=== PATIENT | female | born 1955 | race Caucasian/White ===

== ENCOUNTER 2021-04-01 12:23 | Observation (INO) | payer MEDICARE ==
[2021-04-01 13:32] LABS: ALT (SGPT) 19 U/L (8-55); AST (SGOT) 27 U/L (5-34); Albumin 3.6 g/dL (3.4-4.8); Alkaline Phosphatase 57 U/L (40-110); Anion Gap 14 mmol/L (10-20); BUN (Urea Nitrogen) 15 mg/dL (9.8-20.1); Bilirubin, Total 0.5 mg/dL (0.2-1.2); Calc. Creatinine Clearance 0 mL/min (70-130); Calcium 9.3 mg/dL (7.8-10.44); Carbon Dioxide 26 mmol/L (23-31); Chloride 102 mmol/L (98-107); Globulin 2.4 g/dL (2.4-3.5); Glucose 122 mg/dL (80-115); Potassium 3.9 mmol/L (3.5-5.1); Sodium 138 mmol/L (136-145)
[2021-04-01 13:35] LABS: #Monocytes 1.2 10x3/uL (0.0-1.1); #Neutrophils 5.8 10x3/uL (1.5-8.4); %Basophils 0.4 % (0.0-2.0); %Eosinophils 0.4 % (0.0-6.0); %Lymphocytes 21.2 % (18.0-47.0); %Monocytes 13.3 % (0.0-10.0); %Neutrophils 64.3 % (40.0-75.0); Hemoglobin 8.1 g/dL (12.0-15.5); Mean Corpuscular Hemoglobin 32.4 pg (27.0-33.0); Mean Corpuscular Volume 101.2 fl (81.6-98.3); Platelet Count 120 10x3/uL (150-450)
[2021-04-01 13:55] LABS: CKMB 4.3 ng/mL (0-6.6)
[2021-04-01 14:30] LABS: PTT 21.4 sec (22.0-33.0); Prothrombin Time 10.9 sec (9.5-12.1)
[2021-04-01 17:05] LABS: Lactic Acid 2.5 mmol/L (0.5-2.2)
[2021-04-01] MEDS ORDERED: Zolpidem Tartrate 5 MG TAB PO PRN (19:19)
[2021-04-01] MEDS ORDERED: Guaifenesin DM 100-10/5 ML UDCUP PO PRN (19:19)
[2021-04-01] MEDS ORDERED: Calcium Carbonate 500 MG ChewTAB PO PRN (19:19)
[2021-04-01] MEDS ORDERED: Senokot S 8.6-50 MG TAB PO PRN (19:19)
[2021-04-01] MEDS ORDERED: hydrOXYzine 25 MG TAB PO PRN (19:21)
[2021-04-01] MEDS ORDERED: FERROUS GLUCONATE 236 MG PO SCH (21:00)
[2021-04-01 21:22] LABS: Hemoglobin 8.7 g/dL (12.0-15.5); Lactic Acid 1.8 mmol/L (0.5-2.2); Mean Corpuscular HGB CONC 32.5 g/dL (32.0-36.0); Mean Corpuscular Hemoglobin 32.2 pg (27.0-33.0); Mean Corpuscular Volume 99.3 fl (81.6-98.3); Platelet Count 102 10x3/uL (150-450); RBC Distribution Width 14.6 % (11.5-14.5); White Blood Cell (WBC) Count 8.5 10x3/uL (3.5-10.5)
[2021-04-01 21:25] LABS: Anion Gap 14 mmol/L (10-20); BUN (Urea Nitrogen) 21 mg/dL (9.8-20.1); Calc. Creatinine Clearance 0 mL/min (70-130); Calcium 9.4 mg/dL (7.8-10.44); Carbon Dioxide 25 mmol/L (23-31); Chloride 103 mmol/L (98-107); Glucose 79 mg/dL (80-115); Potassium 4.6 mmol/L (3.5-5.1); Sodium 137 mmol/L (136-145)
[2021-04-01 21:53] LABS: Band 4 % (5-11); Lymphocytes 23 % (21-51); Monocytes 22 % (0-10)
[2021-04-01 21:54] LABS: Anisocytosis SLIGHT = 6-15 cells (100X) (0-5/hpf); Macrocytosis SLIGHT = 6-15 cells (100X) (0-5/hpf); Neutrophil 49 % (42-75)
[2021-04-01 21:55] LABS: Platelet Morphology Comment Appears Decreased
[2021-04-01 21:56] LABS: Large Platelets MODERATE; MDiff Complete? YES; Manual Diff?? YES
[2021-04-01] MEDS: Clopidogrel Bisulfate 75 MG TAB PO SCH (23:41)
[2021-04-02] MEDS: Acetaminophen 325 MG TAB PO PRN ×2 (00:06→15:39)
[2021-04-02 04:51] VITALS: BMI 23.9
[2021-04-02 07:03] LABS: Lactic Acid 1.1 mmol/L (0.5-2.2)
[2021-04-02 07:06] LABS: #Eosinphils 0.1 10x3/uL (0.0-0.5); #Monocytes 1.2 10x3/uL (0.0-1.1); %Basophils 0.4 % (0.0-2.0); %Eosinophils 1.5 % (0.0-6.0); %Monocytes 17.8 % (0.0-10.0); Hemoglobin 7.4 g/dL (12.0-15.5); Mean Corpuscular HGB CONC 32.6 g/dL (32.0-36.0); Mean Corpuscular Hemoglobin 32.7 pg (27.0-33.0); Mean Corpuscular Volume 100.4 fl (81.6-98.3); Mean Platelet Volume 12.7 fl (7.4-10.4); Platelet Count 96 10x3/uL (150-450); RBC Distribution Width 14.9 % (11.5-14.5); Red Blood Cell (RBC) Count 2.26 10x6/uL (3.90-5.03); White Blood Cell (WBC) Count 6.9 10x3/uL (3.5-10.5)
[2021-04-02] MEDS: Levothyroxine Sodium 112 MCG TAB PO SCH (07:15)
[2021-04-02 07:31] LABS: Anion Gap 11 mmol/L (10-20); BUN (Urea Nitrogen) 30 mg/dL (9.8-20.1); Calc. Creatinine Clearance 13 mL/min (70-130); Calcium 8.8 mg/dL (7.8-10.44); Carbon Dioxide 26 mmol/L (23-31); Chloride 106 mmol/L (98-107); Glucose 88 mg/dL (80-115); Potassium 4.2 mmol/L (3.5-5.1); Sodium 139 mmol/L (136-145)
[2021-04-02] MEDS ORDERED: Bempedoic Acid/Ezetimibe [Nexlizet 180-10 Mg Tablet] PO SCH (09:00)
[2021-04-02] MEDS: Ascorbic Acid 500 mg Chewable Tablet PO SCH (10:32)
[2021-04-02] MEDS: Magnesium Oxide 400 MG TAB PO SCH (10:32)
[2021-04-02] MEDS: Ubidecarenone 50 MG CAP PO SCH (10:32)
[2021-04-02] MEDS: Amiodarone 200 MG TAB PO SCH (10:32)
[2021-04-02] MEDS: Multivitamin W/ Minerals 1 TAB PO SCH (10:32)
[2021-04-02] MEDS: Cholecalciferol 1,000 UNITS (25 MCG) TAB PO SCH (10:32)
[2021-04-02] MEDS: Aspirin 81 mg Enteric Coated Tablet PO SCH (10:32)
[2021-04-02] MEDS: PARoxetine 20 MG TAB PO SCH (10:32)
[2021-04-02 14:03] LABS: Hep B Surf Ag Non-Reactive S/CO (NonReactive)
[2021-04-02 14:18] LABS: HBSAg Index 0.25 S/CO (0-0.99)
[2021-04-02 14:25] LABS: SARS-CoV-2 PCR by NAA Not Detected (NotDetected)
[2021-04-02] MEDS: Clopidogrel Bisulfate 75 MG TAB PO SCH (22:09)
[2021-04-03 05:58] LABS: Anion Gap 12 mmol/L (10-20); BUN (Urea Nitrogen) 22 mg/dL (9.8-20.1); Calc. Creatinine Clearance 15 mL/min (70-130); Calcium 9.4 mg/dL (7.8-10.44); Carbon Dioxide 28 mmol/L (23-31); Chloride 102 mmol/L (98-107); Glucose 82 mg/dL (80-115); Potassium 4.5 mmol/L (3.5-5.1); Sodium 137 mmol/L (136-145)
[2021-04-03 06:03] LABS: #Basophils 0.1 10x3/uL (0.0-0.2); #Eosinphils 0.2 10x3/uL (0.0-0.5); #Monocytes 0.9 10x3/uL (0.0-1.1); #Neutrophils 3.1 10x3/uL (1.5-8.4); %Basophils 0.8 % (0.0-2.0); %Eosinophils 2.8 % (0.0-6.0); %Lymphocytes 30.7 % (18.0-47.0); %Monocytes 15.3 % (0.0-10.0); %Neutrophils 50.1 % (40.0-75.0); Hemoglobin 9.3 g/dL (12.0-15.5); Mean Corpuscular HGB CONC 32.5 g/dL (32.0-36.0); Mean Corpuscular Hemoglobin 31.6 pg (27.0-33.0); Mean Corpuscular Volume 97.3 fl (81.6-98.3); Mean Platelet Volume 12.8 fl (7.4-10.4); Platelet Count 99 10x3/uL (150-450); RBC Distribution Width 15.2 % (11.5-14.5); Red Blood Cell (RBC) Count 2.94 10x6/uL (3.90-5.03); White Blood Cell (WBC) Count 6.2 10x3/uL (3.5-10.5)
[2021-04-03] MEDS: Levothyroxine Sodium 112 MCG TAB PO SCH (06:12)
[2021-04-03] MEDS: Ascorbic Acid 500 mg Chewable Tablet PO SCH (11:29)
[2021-04-03] MEDS: Amiodarone 200 MG TAB PO SCH ×2 (11:29→16:13)
[2021-04-03] MEDS: Ubidecarenone 50 MG CAP PO SCH (11:30)
[2021-04-03] MEDS: PARoxetine 20 MG TAB PO SCH (11:30)
[2021-04-03] MEDS: Magnesium Oxide 400 MG TAB PO SCH (11:30)
[2021-04-03] MEDS: Multivitamin W/ Minerals 1 TAB PO SCH (11:30)
[2021-04-03] MEDS: Aspirin 81 mg Enteric Coated Tablet PO SCH (11:30)
[2021-04-03] MEDS: Cholecalciferol 1,000 UNITS (25 MCG) TAB PO SCH (11:30)
[2021-04-03 12:21] VITALS: BP 127/69; TEMP 98.2
[2021-04-03] MEDS: CALCIUM PO SCH (14:11)
[2021-04-03] MEDS: CRANBERRY PO SCH (14:11)
[2021-04-03] MEDS: LYSINE 500 MG PO SCH ×2 (14:11→14:12)
[2021-04-03] MEDS: [UNRECOGNIZED DRUG - OTHER] PO SCH (14:11)
[2021-04-03] MEDS: B COAGULAN PO SCH (14:11)
[2021-04-03 17:59] LABS: Hemoglobin 11.2 g/dL (12.0-15.5)
== END 2021-04-03 19:50 | disposition home or self-care (01) ==
LOC: CSHERS 12:23 → CSHTELE 20:15
PROVIDERS: ADMIT Student in an Organized Health Care Education/Training Program; ATTEND Internal Medicine
DX: D62 Acute posthemorrhagic anemia (principal); D63.8 Anemia in other chronic diseases classified elsewhere; L76.32 Postprocedural hematoma of skin and subcutaneous tissue following other procedure; I95.9 Hypotension, unspecified; I73.9 Peripheral vascular disease, unspecified; I25.10 Atherosclerotic heart disease of native coronary artery without angina pectoris; Z95.1 Presence of aortocoronary bypass graft; I13.2 Hypertensive heart and chronic kidney disease with heart failure and with stage 5 chronic kidney disease, or end stage renal disease; I50.40 Unspecified combined systolic (congestive) and diastolic (congestive) heart failure; N18.6 End stage renal disease; Z99.2 Dependence on renal dialysis; E87.2 Acidosis; I48.0 Paroxysmal atrial fibrillation; I70.1 Atherosclerosis of renal artery; E03.9 Hypothyroidism, unspecified; E78.2 Mixed hyperlipidemia; E78.00 Pure hypercholesterolemia, unspecified; F41.9 Anxiety disorder, unspecified; Z20.822 Contact with and (suspected) exposure to COVID-19; Z95.810 Presence of automatic (implantable) cardiac defibrillator; Z95.2 Presence of prosthetic heart valve; Z79.899 Other long term (current) drug therapy; Z79.82 Long term (current) use of aspirin; Z88.5 Allergy status to narcotic agent
CPT/HCPCS: 36430; 71045; 80048 ×3; 80053; 82553; 83605 ×2; 84484; 85014; 85018; 85025 ×3; 85610; 85730; 86850; 86900; 86901; 86920; 87340; 93005; 99285; G0378 ×4; P9016 ×2; U0003; U0005; 36415; 87635; 90935; G0257

== ENCOUNTER 2021-12-11 11:10 | Emergency (ER) | payer MEDICARE, OTHER, SELFPAY | END 2021-12-11 15:35 | disposition home or self-care (01) | LOC: CSHERS 11:10 | DX: Q18.0 Sinus, fistula and cyst of branchial cleft (principal); I10 Essential (primary) hypertension; E03.9 Hypothyroidism, unspecified; E78.5 Hyperlipidemia, unspecified; E78.00 Pure hypercholesterolemia, unspecified; Z79.82 Long term (current) use of aspirin | CPT/HCPCS: 99284 ==

== ENCOUNTER 2022-06-24 16:07 | Outpatient (CLI) | payer MEDICARE, OTHER | END 2022-06-24 16:08 | disposition home or self-care (01) | LOC: CSHRAD 16:07 | PROVIDERS: ATTEND Physician Assistant Medical | DX: I48.0 Paroxysmal atrial fibrillation (principal); I51.7 Cardiomegaly | CPT/HCPCS: 71046 ==

== ENCOUNTER 2022-10-15 12:30 | Emergency (ER) | payer MEDICARE, OTHER | END 2022-10-15 13:50 | disposition home or self-care (01) | LOC: CSHERS 12:30 | DX: T82.838A Hemorrhage due to vascular prosthetic devices, implants and grafts, initial encounter (principal); E03.9 Hypothyroidism, unspecified; I10 Essential (primary) hypertension; E78.00 Pure hypercholesterolemia, unspecified | CPT/HCPCS: 99284 ==

== ENCOUNTER 2022-11-08 03:33 | Inpatient (IN) | payer MEDICARE, OTHER ==
[2022-11-08] MEDS ORDERED: Ondansetron PF 4 MG/2 ML Vial ONE (04:43)
[2022-11-08 05:00] LABS: Hemoglobin 10.5 g/dL (12.0-15.5); Mean Corpuscular HGB CONC 33.2 g/dL (32.0-36.0); Mean Corpuscular Hemoglobin 31.6 pg (27.0-33.0); Mean Corpuscular Volume 95.2 fl (81.6-98.3); Mean Platelet Volume 13.6 fl (7.4-10.4); Platelet Count 104 10x3/uL (150-450); RBC Distribution Width 14.6 % (11.5-14.5); Red Blood Cell (RBC) Count 3.32 10x6/uL (3.90-5.03); White Blood Cell (WBC) Count 7.4 10x3/uL (3.5-10.5)
[2022-11-08 05:12] LABS: ALT (SGPT) 14 U/L (8-55); AST (SGOT) 23 U/L (5-34); Albumin 3.4 g/dL (3.4-4.8); Alkaline Phosphatase 57 U/L (40-110); Anion Gap 17 mmol/L (10-20); BUN (Urea Nitrogen) 43 mg/dL (9.8-20.1); Bilirubin, Total 0.7 mg/dL (0.2-1.2); Calc. Creatinine Clearance 0 mL/min (70-130); Calcium 9.8 mg/dL (7.8-10.44); Carbon Dioxide 31 mmol/L (23-31); Chloride 97 mmol/L (98-107); Estimated GFR 8; Globulin 1.9 g/dL (2.4-3.5); Glucose 79 mg/dL (80-115); Potassium 4.3 mmol/L (3.5-5.1); Protein, Total 5.3 g/dL (5.8-8.1); Sodium 141 mmol/L (136-145)
[2022-11-08 05:24] LABS: MDiff Complete? YES
[2022-11-08 05:27] LABS: Band 5 % (5-11); Lymphocytes 9 % (21-51); Monocytes 14 % (0-10); Neutrophil 70 % (42-75); Platelet Morphology Comment Appears Decreased; Reactive Lymphocytes 2 % (0-10)
[2022-11-08 05:28] LABS: RBC Morphology Normal
[2022-11-08 05:40] LABS: CKMB 2.9 ng/mL (0-6.6)
[2022-11-08] MEDS ORDERED: Aspirin Chewable 81 MG TAB ONE (06:00)
[2022-11-08] MEDS ORDERED: Senokot S 8.6-50 MG TAB PO PRN (06:21)
[2022-11-08 06:28] LABS: SARS-CoV-2 NAA Rapid Test Not Detected (NotDetected)
[2022-11-08 07:32] LABS: Troponin I 0.144 ng/mL (< 0.028)
[2022-11-08 08:07] VITALS: BMI 19.7
[2022-11-08] MEDS: Sevelamer Carbonate 800 MG TAB PO SCH ×3 (08:32→17:53)
[2022-11-08] MEDS: PARoxetine 20 MG TAB PO SCH (08:33)
[2022-11-08] MEDS: LACTINEX 1 TAB PO SCH (08:33)
[2022-11-08] MEDS: Zinc Gluconate 50 MG TAB PO SCH (08:34)
[2022-11-08] MEDS: Heparin 5,000 UNITS/ML VIAL SC SCH ×3 (08:35→20:53)
[2022-11-08 09:38] LABS: Troponin I 0.159 ng/mL (< 0.028)
[2022-11-08 11:33] LABS: Hep B Surf Ag Non-Reactive S/CO (NonReactive)
[2022-11-08] MEDS: Acetaminophen 325 MG TAB PO PRN (12:42)
[2022-11-08] MEDS: Losartan 25 MG TAB PO SCH (20:53)
[2022-11-08] MEDS: Clopidogrel Bisulfate 75 MG TAB PO SCH (20:54)
[2022-11-08] MEDS: Amiodarone 200 MG TAB PO SCH (20:54)
[2022-11-08] MEDS: Multivitamin W/ Minerals 1 TAB PO SCH (20:55)
[2022-11-08] MEDS ORDERED: Non-Formulary Medication 1 EACH (Bempedoic Acid/Ezetimibe [Nexlizet 180-10 Mg Tablet] 1 EA PO SCH (21:00)
[2022-11-08] MEDS ORDERED: Amlodipine 5 MG TAB PO SCH (21:00)
[2022-11-08 23:59] LABS: HBSAB Concentration Less than 8.00 mIU/mL; Hep B Core Total Ab Non-Reactive (NonReactive); Hep B Core Total Index 0.09 S/CO (0-0.79); Hep B Surf AB Non-Reactive (NonReactive); Hep C IgG Ab Non-Reactive (NonReactive); Hep C Index 0.14 S/CO (0-0.79)
[2022-11-09 04:48] LABS: #Monocytes 0.7 10x3/uL (0.0-1.1); %Lymphocytes 11.2 % (18.0-47.0); %Monocytes 9.6 % (0.0-10.0); %Neutrophils 78.7 % (40.0-75.0); Hemoglobin 9.9 g/dL (12.0-15.5); Mean Corpuscular HGB CONC 32.2 g/dL (32.0-36.0); Mean Corpuscular Hemoglobin 31.4 pg (27.0-33.0); Mean Corpuscular Volume 97.5 fl (81.6-98.3); Mean Platelet Volume 13.4 fl (7.4-10.4); Platelet Count 106 10x3/uL (150-450); RBC Distribution Width 14.8 % (11.5-14.5); Red Blood Cell (RBC) Count 3.15 10x6/uL (3.90-5.03); White Blood Cell (WBC) Count 7.6 10x3/uL (3.5-10.5)
[2022-11-09 04:56] LABS: Anion Gap 13 mmol/L (10-20); BUN (Urea Nitrogen) 24 mg/dL (9.8-20.1); Calc. Creatinine Clearance 12 mL/min (70-130); Calcium 9.3 mg/dL (7.8-10.44); Carbon Dioxide 30 mmol/L (23-31); Chloride 99 mmol/L (98-107); Estimated GFR 12; Glucose 78 mg/dL (80-115); Potassium 3.6 mmol/L (3.5-5.1); Sodium 138 mmol/L (136-145)
[2022-11-09 05:08] LABS: Platelet Morphology Comment Appears Decreased; RBC Morphology Normal
[2022-11-09] MEDS: Levothyroxine Sodium 112 MCG TAB PO SCH (05:36)
[2022-11-09] MEDS: Levothyroxine Sodium 25 MCG TAB PO SCH (05:36)
[2022-11-09] MEDS: LACTINEX 1 TAB PO SCH (08:24)
[2022-11-09] MEDS: Sevelamer Carbonate 800 MG TAB PO SCH ×3 (08:24→17:45)
[2022-11-09] MEDS: Zinc Gluconate 50 MG TAB PO SCH (08:24)
[2022-11-09] MEDS: PARoxetine 20 MG TAB PO SCH (08:24)
[2022-11-09] MEDS: Heparin 5,000 UNITS/ML VIAL SC SCH ×3 (08:25→21:24)
[2022-11-09] MEDS ORDERED: Guaifenesin DM 100-10/5 ML UDCUP PO PRN (11:11)
[2022-11-09] MEDS ORDERED: Furosemide 100 MG/10 ML VIAL SLOW IVP SCH (11:30)
[2022-11-09] MEDS: Benzonatate 100 MG CAP PO SCH ×2 (16:18→21:18)
[2022-11-09] MEDS: Losartan 25 MG TAB PO SCH (21:18)
[2022-11-09] MEDS: Clopidogrel Bisulfate 75 MG TAB PO SCH (21:18)
[2022-11-09] MEDS: Multivitamin W/ Minerals 1 TAB PO SCH (21:19)
[2022-11-09] MEDS: Amiodarone 200 MG TAB PO SCH (21:19)
[2022-11-09] MEDS: Acetaminophen 325 MG TAB PO PRN (23:25)
[2022-11-10 05:19] LABS: #Monocytes 0.7 10x3/uL (0.0-1.1); #Neutrophils 6.9 10x3/uL (1.5-8.4); %Basophils 0.1 % (0.0-2.0); %Lymphocytes 8.1 % (18.0-47.0); %Monocytes 8.1 % (0.0-10.0); %Neutrophils 83.3 % (40.0-75.0); Hemoglobin 9.8 g/dL (12.0-15.5); Mean Corpuscular HGB CONC 31.9 g/dL (32.0-36.0); Mean Corpuscular Hemoglobin 31.6 pg (27.0-33.0); Mean Platelet Volume 13.3 fl (7.4-10.4); Platelet Count 110 10x3/uL (150-450); RBC Distribution Width 14.6 % (11.5-14.5); White Blood Cell (WBC) Count 8.2 10x3/uL (3.5-10.5)
[2022-11-10 05:33] LABS: Anion Gap 14 mmol/L (10-20); BUN (Urea Nitrogen) 36 mg/dL (9.8-20.1); Calc. Creatinine Clearance 9 mL/min (70-130); Calcium 9.5 mg/dL (7.8-10.44); Carbon Dioxide 29 mmol/L (23-31); Chloride 96 mmol/L (98-107); Estimated GFR 9; Glucose 72 mg/dL (80-115); Potassium 3.6 mmol/L (3.5-5.1); Sodium 135 mmol/L (136-145)
[2022-11-10] MEDS: Levothyroxine Sodium 112 MCG TAB PO SCH (06:12)
[2022-11-10] MEDS: Levothyroxine Sodium 25 MCG TAB PO SCH (06:12)
[2022-11-10] MEDS: Acetaminophen 325 MG TAB PO PRN ×2 (06:12→23:33)
[2022-11-10] MEDS: Furosemide 100 MG/10 ML VIAL SLOW IVP SCH (09:57)
[2022-11-10] MEDS: Sevelamer Carbonate 800 MG TAB PO SCH ×3 (09:57→18:36)
[2022-11-10] MEDS: Benzonatate 100 MG CAP PO SCH ×3 (09:57→20:52)
[2022-11-10] MEDS: PARoxetine 20 MG TAB PO SCH (09:57)
[2022-11-10] MEDS: LACTINEX 1 TAB PO SCH (09:57)
[2022-11-10] MEDS: Heparin 5,000 UNITS/ML VIAL SC SCH ×3 (09:57→20:53)
[2022-11-10] MEDS: Zinc Gluconate 50 MG TAB PO SCH (09:58)
[2022-11-10 16:08] LABS: CKMB 2.3 ng/mL (0-6.6)
[2022-11-10] MEDS: Losartan 25 MG TAB PO SCH (20:52)
[2022-11-10] MEDS: Multivitamin W/ Minerals 1 TAB PO SCH (20:52)
[2022-11-10] MEDS: Amiodarone 200 MG TAB PO SCH (20:53)
[2022-11-10] MEDS: Clopidogrel Bisulfate 75 MG TAB PO SCH (20:53)
[2022-11-11] MEDS: Acetaminophen 325 MG TAB PO PRN ×2 (05:37→23:50)
[2022-11-11] MEDS: Levothyroxine Sodium 25 MCG TAB PO SCH (05:43)
[2022-11-11] MEDS: Levothyroxine Sodium 112 MCG TAB PO SCH (05:43)
[2022-11-11 06:59] LABS: Platelet Count 144 10x3/uL (150-450)
[2022-11-11 07:00] LABS: #Monocytes 0.9 10x3/uL (0.0-1.1); #Neutrophils 6.9 10x3/uL (1.5-8.4); %Basophils 0.1 % (0.0-2.0); %Monocytes 10.8 % (0.0-10.0); %Neutrophils 79.6 % (40.0-75.0); Hemoglobin 11.9 g/dL (12.0-15.5); Mean Corpuscular HGB CONC 31.5 g/dL (32.0-36.0); Mean Corpuscular Hemoglobin 31.6 pg (27.0-33.0); Mean Corpuscular Volume 100.5 fl (81.6-98.3); Mean Platelet Volume 13.2 fl (7.4-10.4); RBC Distribution Width 14.7 % (11.5-14.5); Red Blood Cell (RBC) Count 3.76 10x6/uL (3.90-5.03); White Blood Cell (WBC) Count 8.7 10x3/uL (3.5-10.5)
[2022-11-11 07:05] LABS: Anion Gap 19 mmol/L (10-20); BUN (Urea Nitrogen) 21 mg/dL (9.8-20.1); Calc. Creatinine Clearance 13 mL/min (70-130); Calcium 9.9 mg/dL (7.8-10.44); Carbon Dioxide 27 mmol/L (23-31); Chloride 99 mmol/L (98-107); Estimated GFR 15; Glucose 66 mg/dL (80-115); Potassium 4.2 mmol/L (3.5-5.1); Sodium 141 mmol/L (136-145)
[2022-11-11] MEDS: Benzonatate 100 MG CAP PO SCH ×3 (07:59→20:14)
[2022-11-11] MEDS: Sevelamer Carbonate 800 MG TAB PO SCH ×3 (07:59→16:19)
[2022-11-11] MEDS: PARoxetine 20 MG TAB PO SCH (07:59)
[2022-11-11] MEDS: LACTINEX 1 TAB PO SCH (07:59)
[2022-11-11] MEDS: Zinc Gluconate 50 MG TAB PO SCH (08:30)
[2022-11-11] MEDS: Heparin 5,000 UNITS/ML VIAL SC SCH ×3 (08:34→20:18)
[2022-11-11] MEDS: Gabapentin 100 MG CAP PO SCH ×2 (11:55→20:14)
[2022-11-11] MEDS: Furosemide 100 MG/10 ML VIAL SLOW IVP SCH (16:18)
[2022-11-11] MEDS: Losartan 25 MG TAB PO SCH (20:15)
[2022-11-11] MEDS: Multivitamin W/ Minerals 1 TAB PO SCH (20:15)
[2022-11-11] MEDS: Clopidogrel Bisulfate 75 MG TAB PO SCH (20:15)
[2022-11-11] MEDS: Amiodarone 200 MG TAB PO SCH (20:15)
[2022-11-11] MEDS ORDERED: Furosemide 100 MG/10 ML VIAL SLOW IVP SCH (20:45)
[2022-11-12] MEDS ORDERED: ALPRAZolam 0.5 MG TAB PO SCH (00:15)
[2022-11-12] MEDS: Levothyroxine Sodium 112 MCG TAB PO SCH (05:41)
[2022-11-12] MEDS: Levothyroxine Sodium 25 MCG TAB PO SCH (05:41)
[2022-11-12] MEDS: Sevelamer Carbonate 800 MG TAB PO SCH ×3 (10:59→15:51)
[2022-11-12] MEDS: Furosemide 100 MG/10 ML VIAL SLOW IVP SCH (11:00)
[2022-11-12] MEDS: Benzonatate 100 MG CAP PO SCH ×2 (11:00→15:51)
[2022-11-12] MEDS: Heparin 5,000 UNITS/ML VIAL SC SCH ×2 (11:00→15:52)
[2022-11-12] MEDS: Gabapentin 100 MG CAP PO SCH ×2 (11:00→13:51)
[2022-11-12] MEDS: Zinc Gluconate 50 MG TAB PO SCH (12:03)
[2022-11-12] MEDS: LACTINEX 1 TAB PO SCH (12:03)
[2022-11-12] MEDS: Acetaminophen 325 MG TAB PO PRN (13:48)
[2022-11-12] MEDS: PARoxetine 20 MG TAB PO SCH (15:50)
[2022-11-12 17:09] VITALS: BP 115/57; TEMP 98.3
== END 2022-11-12 19:00 | DRG 280 ==
LOC: CSHERS 03:33 → OBSVTOIN 06:21 → CSHTELE 06:21
PROVIDERS: ADMIT Student in an Organized Health Care Education/Training Program; ATTEND Hospitalist
PROC: 5A1D70Z Performance of Urinary Filtration, Intermittent, Less than 6 Hours Per Day (ICD-10-PCS; principal; 2022-11-08)
PROC: 5A1D70Z Performance of Urinary Filtration, Intermittent, Less than 6 Hours Per Day (ICD-10-PCS; 2022-11-10)
PROC: 5A1D70Z Performance of Urinary Filtration, Intermittent, Less than 6 Hours Per Day (ICD-10-PCS; 2022-11-12)
DX: I13.2 Hypertensive heart and chronic kidney disease with heart failure and with stage 5 chronic kidney disease, or end stage renal disease (principal); I21.A1 Myocardial infarction type 2; I50.43 Acute on chronic combined systolic (congestive) and diastolic (congestive) heart failure; N18.6 End stage renal disease; J96.01 Acute respiratory failure with hypoxia; I25.10 Atherosclerotic heart disease of native coronary artery without angina pectoris; E03.9 Hypothyroidism, unspecified; D63.1 Anemia in chronic kidney disease; I25.5 Ischemic cardiomyopathy; I48.0 Paroxysmal atrial fibrillation; E21.3 Hyperparathyroidism, unspecified; Z20.822 Contact with and (suspected) exposure to COVID-19; E78.5 Hyperlipidemia, unspecified; Z95.1 Presence of aortocoronary bypass graft; Z88.5 Allergy status to narcotic agent; Z88.8 Allergy status to other drugs, medicaments and biological substances; Z79.82 Long term (current) use of aspirin; Z79.890 Hormone replacement therapy; Z79.899 Other long term (current) drug therapy; Z95.810 Presence of automatic (implantable) cardiac defibrillator; Z98.890 Other specified postprocedural states; Z95.2 Presence of prosthetic heart valve; Z99.2 Dependence on renal dialysis
CPT/HCPCS: 36415; 36416; 71045; 80048; 80053; 82553; 83880; 84484; 85025; 86704; 90935; 93005; 96374; G0257; J1644; J1940; J2405; U0002